=== PATIENT | female | born 1965 | race Caucasian/White ===

== ENCOUNTER 2020-05-20 07:41 | Outpatient (CLI) | payer BC ==
--- NOTE | 2020-05-20 13:51 | XRAY Report ---
PROCEDURE: Elbow 3 View BILAT INDICATIONS: BILATERAL ELBOW PAIN TECHNIQUE: 3 views of the right elbow and left elbow were acquired. COMPARISON: None FINDINGS: Bones: No right elbow or left elbow fractures or dislocations. No suspicious bony lesions evolving the right elbow or left elbow. Soft tissues: No elbow joint effusion. No suspicious soft tissue calcifications. IMPRESSION: No osseous lesion. If there is continued clinical concern for pathology, then repeat plain film radio graphs (7-10 days) or advanced imaging (CT, MR, bone scan) should be considered for further evaluatio n. Reviewed by: Judy Marte MD, PhD on 05/20/2020 1:49 PM PDT Approved by: Judy Marte MD, PhD on 05/20/2020 1:49 PM PDT Station ID: [id number]
--- NOTE | 2020-05-20 13:55 | XRAY Report ---
PROCEDURE: Ankle 3 View BILAT INDICATIONS: BILATERAL ANKLE PAIN TECHNIQUE: 3 views of the right ankle and left ankle were acquired. COMPARISON: None FINDINGS: Bones: No fractures or dislocations. Ankle mortise is normally aligned. No suspicious bony lesions . 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 Soft tissues: No tibiotalar joint effusion. Achilles tendon appears normal. IMPRESSION: No osseous lesion. If there is continued clinical concern for pathology, then repeat plain film radio graphs (7-10 days) or advanced imaging (CT, MR, bone scan) should be considered for further evaluatio n. Reviewed by: Judy Marte MD, PhD on 05/20/2020 1:54 PM PDT Approved by: Judy Marte MD, PhD on 05/20/2020 1:54 PM PDT Station ID: [id number]
--- NOTE | 2020-05-20 13:56 | XRAY Report ---
PROCEDURE: Hand 3 View BILAT INDICATIONS: BILATERAL HAND PAIN TECHNIQUE: 3 views of the right and left hand(s) acquired. COMPARISON: None FINDINGS: Bones: No fractures or dislocations involving the right and or left hand. No suspicious bony lesion s. Soft tissues: No suspicious soft tissue calcifications. IMPRESSION: No osseous lesion. If there is continued clinical concern for pathology, then repeat plain film radio graphs (7-10 days) or advanced imaging (CT, MR, bone scan) should be considered for further evaluatio n. Reviewed by: Judy Marte MD, PhD on 05/20/2020 1:55 PM PDT Approved by: Judy Marte MD, PhD on 05/20/2020 1:55 PM PDT Station ID: [id number]
== END 2020-05-20 07:42 | disposition home or self-care (01) ==
LOC: DI.S 07:41
PROVIDERS: ATTEND Nurse Practitioner Adult Health
DX: M79.642 Pain in left hand (principal); M79.641 Pain in right hand; M25.522 Pain in left elbow; M25.521 Pain in right elbow; M25.572 Pain in left ankle and joints of left foot; M25.571 Pain in right ankle and joints of right foot